=== PATIENT | male | born 1970 | race African-American/Black ===

== ENCOUNTER 2017-03-05 17:16 | Emergency (ER) | payer MEDICARE, OTHER ==
--- NOTE | ~2017-03-05 | CR172 ---
[facility]. [facility] A Service of [facility] & [facility] RADIOLOGY TEXT RESULTS PATIENT: MANNY HANDLEY LOCATION: SED : 74 UNIT #: [id number] AGE: [address]: Shawn Ventura SEX: M ORDER DR: [id number] [place] [id number] E MR#: [id number] Acc #: [id number] NAME: MANNY HANDLEY. : 1970 SEX: M STUDY DATE/TIME: 03/05/2017 18:19 UNIT: SED ROOM: STUDY DESCRIPTION: CR Knee 3 Views Lt Attending Physician: Shawn Ventura P.A.-C. Ordering Physician: Shawn Ventura P.A.-C. Primary Care Physician: No Primary Care Physician MEDICAL IMAGING REPORT This report is preliminary unless electronic signature is present. EXAM Left knee 3 views HISTORY Knee pain after fall 2 days ago. FINDINGS Two views left knee demonstrate plate and screw fixation of the tibial plateau extending to the proximal tibial shaft. No acute fracture, joint space narrowing or dislocation or effusion. Mild degenerative changes in the patellofemoral joint. IMPRESSION No acute findings. Internal fixation of the proximal tibia. Dictated by... Won Odonnell M.D. THIS IS AN ELECTRONICALLY VERIFIED REPORT Won Odonnell M.D. at 03/05/2017 11:14 PM ILANA/eufemia TD: 03/05/2017 23:04 JOB #: [id number] MEDICAL IMAGING REPORT Page 1 of 1
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
--- NOTE | ~2017-03-05 | CR181 ---
[facility] A Service of [facility] & [facility] RADIOLOGY TEXT RESULTS PATIENT: MANNY HANDLEY LOCATION: SED : 74 UNIT #: [id number] AGE: [address]: Shawn Ventura SEX: M ORDER DR: [id number] [place] [id number] E MR#: [id number] Acc #: [id number] NAME: MANNY HANDLEY. : 1970 SEX: M STUDY DATE/TIME: 03/05/2017 18:19 UNIT: SED ROOM: STUDY DESCRIPTION: CR Lumbar Spine 2 or 3 Views Attending Physician: Shawn Ventura P.A.-C. Ordering Physician: Shawn Ventura P.A.-C. Primary Care Physician: Primary Care Physician No MEDICAL IMAGING REPORT This report is preliminary unless electronic signature is present. EXAM Lumbar spine, 3 views HISTORY Back pain after fall 2 days ago. FINDINGS 3 views of the lumbar spine demonstrate mild left lumbar curve. No fracture, disc space narrowing or subluxation. Small anterior marginal osteophyte at L3-4. IMPRESSION No acute findings. No fracture. Mild left lumbar curve. Dictated by... Won Odonnell M.D. THIS IS AN ELECTRONICALLY VERIFIED REPORT Won Odonnell M.D. at 03/05/2017 11:14 PM DFL/psc TD: 03/05/2017 23:03 JOB #: [id number] MEDICAL IMAGING REPORT Page 1 of 1
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
[~2017-03-05 17:16] MED LIST: AMOXICILLI200 MG/5 M PO; AMOXICILLIN875 MG PO; ATIVAN PO; AZITHROMYCIN250 MG PO; CIPRO PO; KEFLEX500 MG PO; LORTAB ELIXIR15 ML PO; MAGIC MOUTHWASH; NAPROXEN375 MG PO; NO MEDICATIONS; PERCOCET PO; PHENERGAN PO; PREDNISONE PO; VOLTAREN75 MG PO; ZOFRAN PO
[2017-03-05] MEDS ORDERED: NO MEDICATIONS (17:29)
== END 2017-03-05 19:52 | disposition home or self-care (01) ==
LOC: SED 17:16
DX: S13.4XXA Sprain of ligaments of cervical spine, initial encounter (principal); S33.5XXA Sprain of ligaments of lumbar spine, initial encounter; S83.92XA Sprain of unspecified site of left knee, initial encounter; F17.200 Nicotine dependence, unspecified, uncomplicated; W17.81XA Fall down embankment (hill), initial encounter
CPT/HCPCS: 29530; 72040; 72072; 72100; 73562; 99284